=== PATIENT | male | born 1995 | race Caucasian/White ===

== ENCOUNTER 2018-06-19 12:43 | Emergency (ER) | payer MEDICAID ==
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
[2018-06-19] MEDS ORDERED: CEPHALEXIN 500 MG CAP PO ONE (14:40)
[2018-06-19 14:58] VITALS: BP 135/83
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
== END 2018-06-19 14:56 | disposition home or self-care (01) ==
PROC: 0HQGXZZ Repair Left Hand Skin, External Approach (ICD-10-PCS; principal; 2018-06-19)
DX: S61.412A Laceration without foreign body of left hand, initial encounter (principal); V19.9XXA Pedal cyclist (driver) (passenger) injured in unspecified traffic accident, initial encounter; Y93.55 Activity, bike riding

== ENCOUNTER 2018-06-21 14:07 | Inpatient (IN) | payer OTHER ==
--- NOTE | 2018-06-21 14:55 | EDPHY ---
H & P Stated Complaint: L hand wound check Time Seen by Provider: 06/21/18 14:54 HPI/ROS: CHIEF COMPLAINT: Left upper extremity cellulitis HISTORY OF PRESENT ILLNESS: The patient was emergency department several days ago after he sustained a laceration to the palm of his left hand. The patient had the laceration copiously irrigated. He was started on Keflex after primary closure in the ED. Presents the ED today complaining of increased pain, redness and swelling. The patient denies any acute numbness or weakness. He has no significant pain in his forearm with movement. He has no complaints of pain in the digits of his hand. REVIEW OF SYSTEMS: A comprehensive 10 point review of systems is otherwise negative aside from elements mentioned in the history of present illness. Source: Patient Exam Limitations: No limitations - Personal History Current Tetanus/Diphtheria Vaccine: Yes Current Tetanus Diphtheria and Acellular Pertussis (TDAP): Yes - Medical/Surgical History Hx Asthma: No Hx Chronic Respiratory Disease: No Hx Diabetes: No Hx Cardiac Disease: No Hx Renal Disease: No Hx Cirrhosis: No Hx Alcoholism: No Hx HIV/AIDS: No Hx Splenectomy or Spleen Trauma: No Other PMH: bilat acl surg - Social History Smoking Status: Never smoked - Physical Exam Exam: General Appearance: Alert, no distress Eyes: Pupils equal and round no pallor or injection ENT, Mouth: Mucous membranes moist Respiratory: There are no retractions, lungs are clear to auscultation Cardiovascular: Regular rate and rhythm Gastrointestinal: Abdomen is soft and nontender, no masses, bowel sounds normal Neurological: 5/5 strength noted all 4 extremities Skin: Cellulitic changes noted to the left forearm, sutured laceration noted to the palm of the left hand Musculoskeletal: Neck is supple nontender Extremities: symmetrical, full range of motion Constitutional: Initial Vital Signs Temperature (C) 37.5 C 06/21/18 14:18 Heart Rate 93 06/21/18 14:18 Respiratory Rate 16 06/21/18 14:18 Blood Pressure 134/101 H 06/21/18 14:18 O2 Sat (%) 97 06/21/18 14:18 O2 Delivery Mode Room Air Allergies/Adverse Reactions: No Known Allergies Allergy (Unverified 06/21/18 14:17) Home Medications: Medication Instructions Recorded Cephalexin [Keflex (*)] 500 mg PO Q6H #28 cap 06/19/18 Medical Decision Making ED Course/Re-evaluation: Patient presents the ED with complaints of increased pain, redness and swelling to the left forearm following a laceration. Patient had an IV established. Blood cultures are obtained. Patient has been on Keflex. He will be started on vancomycin. He will be admitted to the hospital for upper extremity cellulitis Differential Diagnosis: Differential diagnosis considered includes cellulitis, abscess, necrotizing fasciitis - Data Points Laboratory Results: Laboratory Results 06/21/18 15:17 06/21/18 06/21/18 15:17 15:17 WBC 11.14 10^3/uL H 10^3/uL (3.80-9.50) RBC 5.29 10^6/uL 10^6/uL (4.40-6.38) Hgb 16.1 g/dL g/dL (13.7-17.5) Hct 48.1 % % (40.0-51.0) MCV 90.9 fL fL (81.5-99.8) MCH 30.4 pg pg (27.9-34.1) MCHC 33.5 g/dL g/dL (32.4-36.7) RDW 12.2 % % (11.5-15.2) Plt Count 254 10^3/uL 10^3/uL (150-400) MPV 10.3 fL fL (8.7-11.7) Neut % (Auto) 79.0 % H % (39.3-74.2) Lymph % (Auto) 11.0 % L % (15.0-45.0) [place] % (Auto) 9.0 % % (4.5-13.0) Eos % (Auto) 0.4 % L % (0.6-7.6) Baso % (Auto) 0.4 % % (0.3-1.7) Nucleat RBC Rel Count 0.0 % % (0.0-0.2) Absolute Neuts (auto) 8.82 10^3/uL H 10^3/uL (1.70-6.50) Absolute Lymphs (auto) 1.22 10^3/uL 10^3/uL (1.00-3.00) Absolute Monos (auto) 1.00 10^3/uL H 10^3/uL (0.30-0.80) Absolute Eos (auto) 0.04 10^3/uL 10^3/uL (0.03-0.40) Absolute Basos (auto) 0.04 10^3/uL 10^3/uL (0.02-0.10) Absolute Nucleated RBC 0.00 10^3/uL 10^3/uL (0-0.01) Immature Gran % 0.2 % % (0.0-1.1) Immature Gran # 0.02 10^3/uL 10^3/uL (0.00-0.10) Sodium Pending Potassium Pending Chloride Pending Carbon Dioxide Pending Anion Gap Pending BUN Pending Creatinine Pending Estimated GFR Pending Glucose Pending Calcium Pending Medications Given: Vancomycin/Sodium Chloride (Vancomycin 1 Gm (Premix)) 250 mls @ 250 mls/hr IV EDNOW ONE PRN Reason: Protocol Stop: 06/21/18 16:06 Last Admin: 06/21/18 15:26 Dose: 250 mls Discontinued Medications Sodium Chloride (Ns) 1,000 mls @ 0 mls/hr IV ONCE ONE; Wide Open PRN Reason: Protocol Stop: 06/21/18 15:06 Last Admin: 06/21/18 15:25 Dose: 1,000 mls Departure - Departure Disposition: [facility] Acute Clinical Impression: Left arm cellulitis Condition: Good
[2018-06-21] MEDS ORDERED: NS 1,000 ML IV ONE (15:05)
[2018-06-21] MEDS ORDERED: VANCOMYCIN HCL/NORMAL SALINE 250 ML IV ONE (15:07)
[2018-06-21] MEDS ORDERED: ONDANSETRON 4 MG/2 ML VIAL IVP PRN (15:21)
[2018-06-21] MEDS ORDERED: ACETAMINOPHEN 325 MG TAB PO PRN (15:21)
[2018-06-21] MEDS ORDERED: ONDANSETRON DISINTEGRATING 4 MG TAB PO PRN (15:21)
[2018-06-21 15:29] LABS: PLATELET COUNT 254 10^3/uL (150-400)
[2018-06-21] MEDS ORDERED: OXYCODONE/APAP 5/325 TAB ONE (15:42)
[2018-06-21] MEDS: OXYCODONE/APAP 5/325 TAB PO PRN ×3 (15:44→22:20)
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
[2018-06-21] MEDS: NS 1,000 ML IV SCH (18:47)
[2018-06-21] MEDS: IBUPROFEN 600 MG TAB PO PRN (20:21)
[2018-06-22] MEDS: NS 1,000 ML IV SCH ×2 (02:50→16:10)
[2018-06-22] MEDS: VANCOMYCIN 1.25 GM in NS 250 ML IV SCH ×2 (02:50→14:35)
[2018-06-22 05:09] LABS: PLATELET COUNT 179 10^3/uL (150-400)
[2018-06-22] MEDS: IBUPROFEN 600 MG TAB PO PRN ×3 (08:18→23:07)
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
[2018-06-22] MEDS: OXYCODONE/APAP 5/325 TAB PO PRN ×2 (14:34→22:32)
[2018-06-22] MEDS ORDERED: TDAP ADULT 0.5 ML INJ (BOOSTRIX) IM ONE (14:36)
[2018-06-22] MEDS ORDERED: AMPICILLIN/SULBACTAM 3 GM in NS 100 ML IV SCH (14:45)
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
[2018-06-22] MEDS ORDERED: POLYMYXIN B SULFATE 500,000 UNIT/10 ML SYR IRR ONE (21:00)
[2018-06-22] MEDS ORDERED: BUPIVACAINE 0.5% 30 ML SDV ONE (21:14)
[2018-06-22] MEDS ORDERED: BUPIVACAINE/EPI 0.5% 30 ML SDV ONE (21:21)
--- NOTE | 2018-06-22 21:23 | PDANEPAE ---
ANE History of Present Illness 22 year old with infected hand laceration ANE Past Medical History - Pulmonary History Hx Oxygen in Use at Home: No Hx Sleep Apnea: No Sleep Apnea Screening Result - Last Documented: Negative - Endocrine History Hx Diabetes: No - Chronic Pain History Chronic Pain: No ANE Review of Systems Review of systems is: negative Review of Systems: ANE Patient History - Allergies Allergies/Adverse Reactions: No Known Allergies Allergy (Unverified 06/21/18 14:17) - Home Medications Home medications: home medication list seen and reviewed Home Medications: Ibuprofen [Motrin (*)] 200 mg PO Q6H PRN 06/21/18 [Last Taken Unknown] - NPO status NPO Since - Liquids (Date): 06/22/18 NPO Since - Liquids (Time): 15:00 NPO Since - Solids (Date): 06/22/18 NPO Since - Solids (Time): 15:00 - Anes Hx Anes Hx: no prior problems - Smoking Hx Smoking Status: Never smoked - Alcohol Use Alcohol Use: Rarely ANE Labs/Vital Signs - Labs Result Diagrams: 06/22/18 04:30 06/21/18 15:17 - Vital Signs Blood Pressure: 120/63 Heart Rate: 49 Respiratory Rate: 16 O2 Sat (%): 97 Height: 177.8 cm Weight: 86.183 kg ANE Physical Exam - Airway Neck exam: FROM Mallampati Score: Class 1 Mouth exam: normal dental/mouth exam - Pulmonary Pulmonary: no respiratory distress - Cardiovascular Cardiovascular: regular rate and rhythym - ASA Status ASA Status: I ANE Anesthesia Plan Anesthesia Plan: GA w LMA
[2018-06-22] MEDS ORDERED: MIDAZOLAM 2 MG/2 ML VIAL ONE (21:25)
[2018-06-22] MEDS ORDERED: MIDAZOLAM 2 MG/2 ML VIAL IVP ONE (21:26)
[2018-06-22] MEDS ORDERED: fentaNYL 100 MCG/2 ML INJ ONE ×2 (21:35→22:21)
[2018-06-22] MEDS ORDERED: PROPOFOL 200 MG/20 ML VIAL ONE (21:35)
[2018-06-22] MEDS: AMPICILLIN/SULBACTAM 3 GM in NS 100 ML IV SCH (22:01)
[2018-06-22] MEDS ORDERED: fentaNYL 100 MCG/2 ML INJ IVP PRN (22:15)
[2018-06-22] MEDS ORDERED: MEPERIDINE 25 MG/0.5 ML AMP IVP PRN (22:15)
[2018-06-22] MEDS ORDERED: PROMETHAZINE HCL 25 MG/ML INJ IVP PRN (22:15)
[2018-06-22] MEDS ORDERED: NALOXONE HCL 0.4 MG/ML INJ IVP PRN (22:15)
--- NOTE | 2018-06-22 22:16 | POSTANESTH ---
Post Anesthetic Evaluation Cardiovascular Status: Normal, Stable, Tx Over/Under Hydration Level of Consciousness/Mental Status: Can Participate in Eval Pain Control: Adequate, Prn Tx Ordered Nausea/Vomiting Control: Adequate, Prn Tx Ordered Complications Possibly Related to Anesthesia: None Noted
--- NOTE | 2018-06-22 22:18 | POSTOPPROG ---
Post Op Note Date of Operation: 06/22/18 Surgeon: Cali Spears Anesthesiologist: Warm Anesthesia: LMA Pre-op Diagnosis: Infection Left Palm Post-op Diagnosis: Same Procedure: Drainage and irrigation left palm Findings: 15cc pus Inf/Abcess present in the surg proc area at time of surgery?: Yes Depth: Deep Incisional (Fascial) EBL: Minimal
[2018-06-22] MEDS ORDERED: MEPERIDINE 25 MG/0.5 ML AMP ONE (22:22)
[2018-06-22] MEDS ORDERED: oxyCODONE IR 5 MG TAB ONE (22:29)
[2018-06-22] MEDS ORDERED: OXYCODONE/APAP 5/325 TAB ONE (22:30)
--- NOTE | 2018-06-22 23:06 | GOP ---
[f rep st] OPERATIVE REPORT DATE OF OPERATION: 06/22/2018 SURGEON: Cali Spears MD ANESTHESIOLOGIST: Dr. Hyman. PREOPERATIVE DIAGNOSIS: Infection, left palm. POSTOPERATIVE DIAGNOSIS: Infection, left palm. PROCEDURE PERFORMED: incision and drainage and irrigation of left palm. FINDINGS: ESTIMATED BLOOD LOSS: 5-10 cc. DESCRIPTION OF PROCEDURE: With the patient lying supine under general anesthesia, the left hand and forearm were prepped with Betadine and free draped. Sutures were removed from the laceration, which extended back from mid palm and curved around the base of the hypothenar eminence. Upon opening up the incision, there was an immediate chris of 15-20 cc of brownish pus. There was no odor associated with it. Purulent matter was suctioned out and a small amount of irrigation was done. No foreign bodies were identified within the wound. The wound was substantially deeper than expected and digitally it was explored without finding any sign of communication up the forearm beyond just the level of the wrist or deeper into the hand. Irrigation was carried out with 1500 cc of total antibiotic using the jet pulse keyboard action assembler. The wound appeared nice and clean by the end of the irrigation. Closure was then carried out with 4-0 Prolene loosely approximating the wound. Dressing of Xeroform and gauze was applied followed by a fiberglass volar slab splint. A swab was taken of the purulent material immediately upon opening the wound and this was sent for Gram stain and culture. Procedure was tolerated well. /[id number]/MODL MTDD
[2018-06-22] MEDS ORDERED: HYDROmorphONE/DILAUDID 1 MG/ML INJ IVP PRN (23:21)
[2018-06-23] MEDS: VANCOMYCIN 1.25 GM in NS 250 ML IV SCH (02:13)
[2018-06-23] MEDS: AMPICILLIN/SULBACTAM 3 GM in NS 100 ML IV SCH ×2 (04:32→09:32)
[2018-06-23] MEDS: IBUPROFEN 600 MG TAB PO PRN ×2 (04:34→15:53)
[2018-06-23] MEDS: NS 1,000 ML IV SCH (06:04)
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
[2018-06-23 15:55] VITALS: BP 144/63
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
== END 2018-06-23 18:10 | disposition home or self-care (01) | DRG 580 ==
LOC: INTOOBSV 15:18 → F3E 16:01 → OBSVTOIN 06-22 13:33
PROVIDERS: ADMIT Internal Medicine; ATTEND Internal Medicine
PROC: 0J9K0ZZ Drainage of Left Hand Subcutaneous Tissue and Fascia, Open Approach (ICD-10-PCS; principal; 2018-06-22 21:00)
DX: S61.412A Laceration without foreign body of left hand, initial encounter (principal); T79.8XXA Other early complications of trauma, initial encounter; L02.512 Cutaneous abscess of left hand; L03.114 Cellulitis of left upper limb; V18.0XXA Pedal cycle driver injured in noncollision transport accident in nontraffic accident, initial encounter; Y93.55 Activity, bike riding
CPT/HCPCS: 96365; G0378; J0295; J2175; J2250; J2704; J3010; J3370